=== PATIENT | male | born 1980 | race Caucasian/White ===

== ENCOUNTER 2016-12-04 16:11 | Emergency (ER) | payer OTHER ==
[~2016-12-04 16:11] MED LIST: IBUPOTC PO; NORCOTAB PO
--- NOTE | 2016-12-04 18:06 | REP ---
Head CT without contrast: History: Intermittent headaches. Comparison study: No comparison study. CT findings: Bone window settings demonstrate an intact bony calvarium. There is no evidence of skull fracture or incidental bony calvarial lesion. There are mild mucosal thickening changes in the right sphenoid and ethmoid air cells consistent with some degree of paranasal sinus disease. The visualized paranasal sinuses appear otherwise clear. No intraorbital abnormality is seen. On soft tissue window setting images; the lateral, third, and fourth ventricles are normal in size and position. Keys-white differentiation pattern is normal above and below the tentorium. There are is no evidence of intracranial hemorrhage. No mass, edema, infarction, or midline shift is seen. No extra-axial fluid collection is appreciated. Impression: There is mild mucosal thickening in the ethmoid and right sphenoid air cells consistent with paranasal sinus disease, otherwise negative noncontrast head CT. Signed by Juanjose Weinstein MD 12/04/2016 05:59 P
[2016-12-04] MEDS ORDERED: DOXYCYCLINE HYCLATE 100 MG TAB As Ordered ONE (18:57)
--- NOTE | 2016-12-04 19:03 | EDDOCDS ---
Nurse's Notes [facility] Name: Nabeel Whitfield Age: 36 yrs Sex: Male : 1980 Arrival Date: 12/04/2016 Time: 16:11 Bed 8 Private MD: PRJohn HENDRICKSON Diagnosis: Palpitations;Acute sphenoidal sinusitis;Acute ethmoidal sinusitis Presentation: 12/04 16:18 Presenting complaint: Patient states: increased frequency of headaches over past 2-3 jjr weeks,2 to 3 irregular heart beats a day for past 2-3 weeks also. Adult Sepsis Screening: The patient does not have new or worsening altered mentation. Patient's respiratory rate is less than 22. Systolic blood pressure is greater than 100. Patient has a qSOFA score of 0- Negative Sepsis Screen. Suicide/Homicide risk assessment- the patient denies having any suicidal and/or homicidal ideations and does not present with any other emotional, behavioral or mental health complaints. 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 Transition of care: patient was not received from another setting of care. 16:18 Acuity: CANDY Level 3 jjr 16:18 Method Of Arrival: Ambulance jjr Triage Assessment: 16:21 General: Appears in no apparent distress, Behavior is appropriate for age. Pain: jjr Location: top of head Pain currently is 4 out of 10 on a pain scale. Pt Declines HIV testing. Neurological: No deficits noted. Reports headache. Cardiovascular: Rhythm is regular Chest pain is denied. Respiratory: No deficits noted. Derm: No deficits noted. Historical: - Allergies: no known allergies; - Home Meds: 1. aspirin 325 mg Oral tab 2 tabs prn (Last dose: 12/04/2016) - PMHx: none; - PSHx: Cholecystectomy; - The history from nurses notes was reviewed: and I agree with what is documented. - Social history: Smoking status: Patient states former smoker of tobacco. No barriers to communication noted, The patient speaks fluent Chinese. - : The pt / caregiver states he / she is not on anticoagulants. Home medication list is obtained from the patient. - Hospitalizations: : No recent hospitalization is reported. - Exposure Risk Screening:: None identified. - Immunization history:: All immunizations up-to-date. - Family history: Pertinent for Mother has/had Father has/had hypertension. - Social history:: the patient is a non-smoker, the patient does not drink alcohol, no caffeine or supplements. Screenin:21 Screening information is obtained from the patient. Fall risk: No risks identified. jjr Assistance ADL's: requires no assistance with activities of daily living. Abuse/DV Screen: The patient / caregiver reports he/she is: not in a situation that causes fear, pain or injury. Nutritional screening: No deficits noted. Advance Directives: There is no active DNR order. home support is adequate. Assessment: 16:21 General: Appears in no apparent distress, Behavior is appropriate for age. jjr 17:45 General: Appears in no apparent distress, Behavior is appropriate for age. jjr Neurological: No deficits noted. Cardiovascular: Rhythm is sinus rhythm. Respiratory: No deficits noted. Derm: No deficits noted. 18:37 General: Appears in no apparent distress, holter monitor in place, ambulatory to BR jjr gait steady. Vital Signs: 16:19 BP 144 / 81; Pulse 85; Resp 18; Temp 97.1(T); Pulse Ox 100% on R/A; Weight 88.45 kg j (R); Height 5 ft. 8 in. (172.72 cm) (R); Pain 4/10; 16:21 BP 130 / 60 (auto/); jjr 16:21 Pulse 86 MON; Pulse Ox 100% ; jjr 16:27 BP 129 / 60 (auto/); jjr 16:27 Pulse 76 MON; Pulse Ox 100% ; jjr 16:57 BP 108 / 58 (auto/); jjr 16:57 Pulse 76 MON; Pulse Ox 97% ; jjr 17:27 BP 101 / 61 (auto/); jjr 17:27 Pulse 76 MON; Resp 18; Pulse Ox 98% on R/A; jjr 17:57 BP 122 / 75 (auto/); jjr 17:57 Pulse 80 MON; Pulse Ox 99% ; jjr 18:27 BP 117 / 72 (auto/); jjr 18:27 Pulse 88 MON; Resp 18; Pulse Ox 99% on R/A; jjr 16:19 Body Mass Index 29.65 (88.45 kg, 172.72 cm) jjr Vitals: 16:19 Log In Time N/A - ambulance arrival. jjr ED Course: 16:13 Patient visited by Kendra Vasquez, Stock Order Lister. lbd 16:13 [facility], Nora is Private Physician. lbd 16:13 Patient moved to Waiting lbd 16:14 Tonya Crowell, RN is Primary Nurse. lbd 16:14 Patient moved to 8 lbd 16:19 Triage Initiated jjr 16:21 The patient / caregiver is instructed regarding the plan of care and ED course. Cardiac jjr monitor on. Pulse ox on. NIBP on. 16:22 Patient visited by Tonya Crowell RN. jjr 17:13 Uriel Delgadillo MD is Attending Physician. pc 17:19 Patient visited by Uriel Delgadillo MD. pc 17:45 Patient visited by Tonya Crowell RN. jjr 18:21 [facility] Payment Agreement was scanned into [employer] and attached to record. zo 18:38 Patient visited by Tonya Crowell RN. jjr 18:38 CT Head Without Contrast Returned. EDMS 18:50 John [facility]inoza, [facility] is Referral Physician. pc 18:51 Nicole Miranda is Referral Physician. pc 18:56 Mer Rm RN is Primary Nurse. ko2 19:01 Discontinued lock intact, bleeding controlled, pressure dressing applied, No jjr redness/swelling at site. 20 gauge left AC. No procedures done that require assistance. Administered Medications: 19:01 Drug: Doxycycline 100 mg [doxycycline hyclate 100 mg tablet (1 tabs)] Route: PO; jjr Order Results: Radiology Order: CT Head Without Contrast Test: CT Head Without Contrast REASON FOR EXAMINATION: intermittent headaches; Head CT without contrast:; ; History: Intermittent headaches.; ; Comparison study: No comparison study.; ; CT findings: Bone window settings demonstrate an intact bony calvarium. There; is no evidence of skull fracture or incidental bony calvarial lesion. There are; mild mucosal thickening changes in the right sphenoid and ethmoid air cells; consistent with some degree of paranasal sinus disease. The visualized paranasal; sinuses appear otherwise clear. No intraorbital abnormality is seen. On soft; tissue window setting images; the lateral, third, and fourth ventricles are; normal in size and position. Keys-white differentiation pattern is normal above; and below the tentorium. There are is no evidence of intracranial hemorrhage.; No mass, edema, infarction, or midline shift is seen. No extra-axial fluid; collection is appreciated.; ; Impression:; ; There is mild mucosal thickening in the ethmoid and right sphenoid air cells; consistent with paranasal sinus disease, otherwise negative noncontrast head CT.; ; ; ; Signed by; Juanjose Weinstein MD 12/04/2016 05:59 P; Outcome: 18:51 Discharge ordered by Provider. pc 19:01 Discharge Assessment: patient administered narcotics - no. The following High Risk jjr Discharge criteria are identified: None. Discharged to home ambulatory. Condition: stable. Discharge instructions given to patient, Instructed on discharge instructions, follow up and referral plans. medication usage, Demonstrated understanding of instructions, medications, Prescriptions given X 2. CT Study completed. Property sent home with patient. 19:02 Patient left the ED. jjr Signatures: Dispatcher [employer] EDMS Uriel Delgadillo MD MD pc Kendra Vasquez, Stock Order Lister Unit lbd Saundra Campos Jessica, RN RN Mer McdanielRN RN ko2 MTDD
--- NOTE | 2016-12-04 19:03 | EDDOCDS ---
Physician Documentation [facility] Name: Nabeel Whitfield Age: 36 yrs Sex: Male : 1980 Arrival Date: 12/04/2016 Time: 16:11 Bed 8 Private MD: John ZEPEDA Disposition: 12/04 18:49 Critical Care: Critical care not applicable. pc Disposition: 12/04/16 18:51 Discharged to Home/Self Care. Impression: Palpitations, Acute sphenoidal sinusitis, Acute ethmoidal sinusitis. - Condition is Stable. - Discharge Instructions: Palpitations, Sinusitis, Adult. - Prescriptions for Doxycycline Monohydrate 100 mg Oral Tablet - take 1 tablet by ORAL route every 12 hours for 10 days; 20 tablet. - Medication Reconciliation, Local Pharmacy Hours form. - Follow up: KATELYN Grossman; When: 2 - 3 days; Reason: Recheck today's complaints, Continuance of care. Follow up: Nicole Miranda; When: Call to arrange an appointment; Reason: To establish care. - Problem is an ongoing problem. - Symptoms are unchanged. HPI: 17:21 This 36 yrs old Male presents to ER via Ambulance with complaints of pc Palpitations. 17:21 The history is obtained from the patient. He has had palpitations, described as one pc extra beat, 2-3 times per day, over the past 3-4 weeks. He also has had frontal headaches that last 10 minutes, resolved with ASA, "a few times a day" for the same time frame. He denies any visual changes, focal neuro deficits, nausea or vomiting, chest pain, SOB or any other symptoms. He went ot his PCP at [place], who sent him by ambulance. Historical: - Allergies: no known allergies; - Home Meds: 1. aspirin 325 mg Oral tab 2 tabs prn (Last dose: 12/04/2016) - PMHx: none; - PSHx: Cholecystectomy; - The history from nurses notes was reviewed: and I agree with what is documented. - Social history: Smoking status: Patient states former smoker of tobacco. No barriers to communication noted, The patient speaks fluent Lebanese. - : The pt / caregiver states he / she is not on anticoagulants. Home medication list is obtained from the patient. - Hospitalizations: : No recent hospitalization is reported. - Exposure Risk Screening:: None identified. - Immunization history:: All immunizations up-to-date. - Family history: Pertinent for Mother has/had Father has/had hypertension. - Social history:: the patient is a non-smoker, the patient does not drink alcohol, no caffeine or supplements. ROS: 17:21 All systems are negative except as listed. pc Exam: 17:21 General Appearance: no acute distress, alert. pc 17:21 EENT: normal eye inspection, ears, nose and throat normal, pharynx normal, mucous membranes moist 17:21 Neck: The exam reveals no acute abnormalities. ROM is normal and painless. No nuchal rigidity is noted.. 17:21 Respiratory: no respiratory distress, normal breath sounds, chest non-tender. 17:21 CVS: regular pulse rate, regular rhythm, normal S1 and S2, no murmurs, strong peripheral pulses, normal capillary refill. 17:21 Abdomen: soft, non-tender, no organomegaly, normal bowel sounds. 17:21 Back: normal inspection. 17:21 Skin: skin color is normal, warm, dry. 17:21 Extremities: The extremities have a grossly normal appearance, are non-tender, without acute ROM abnormalities. 17:21 Neuro: oriented x 3, cranial nerves normal as tested, no motor deficits, no sensory deficits, normal gait. 17:21 Psych: normal mood. Vital Signs: 16:19 BP 144 / 81; Pulse 85; Resp 18; Temp 97.1(T); Pulse Ox 100% on R/A; Weight 88.45 kg / jjr 195 lbs (R); Height 5 ft. 8 in. (172.72 cm) (R); Pain 4/10; 16:21 BP 130 / 60 (auto/); jjr 16:21 Pulse 86 MON; Pulse Ox 100% ; jjr 16:27 BP 129 / 60 (auto/); jjr 16:27 Pulse 76 MON; Pulse Ox 100% ; jjr 16:57 BP 108 / 58 (auto/); jjr 16:57 Pulse 76 MON; Pulse Ox 97% ; jjr 17:27 BP 101 / 61 (auto/); jjr 17:27 Pulse 76 MON; Resp 18; Pulse Ox 98% on R/A; jjr 17:57 BP 122 / 75 (auto/); jjr 17:57 Pulse 80 MON; Pulse Ox 99% ; jjr 18:27 BP 117 / 72 (auto/); jjr 18:27 Pulse 88 MON; Resp 18; Pulse Ox 99% on R/A; jjr 16:19 Body Mass Index 29.65 (88.45 kg, 172.72 cm) jjr MDM: 17:20 CT Head Without Contrast Ordered. EDMS 17:21 Differential Diagnosis: occasional palpitations; intermittent brief otherwise pc asymptomatic frontal headaches. Plan: EKG, CT, advice. 17:22 ECG WITH READING ER PHYS+CARDIAG ordered. EDMS 17:31 HOLTER MONITOR+CARDIAG ordered. EDMS 18:17 Financial registration complete. zo 18:21 [facility] Payment Agreement was scanned into [employer] and attached to record. zo 18:49 Data reviewed: old medical records, vital signs, nurses notes, EKG(s). Test pc interpretation: EKG. The patient has been re-examined and re-evaluated. The clinical presentation did not require any ED treatment or interventions. Disposition: The historical points, examination findings, and any diagnostic results supporting the provided diagnosis, were discussed with the patient or legal guardian. The need for outpatient follow up with the provider listed on their discharge instructions was discussed. They were encouraged to return to [facility], or the nearest ED, if symptoms worsen/persist, or for any other questions/concerns. 18:50 Doxycycline 100 mg PO once ordered. pc EC:49 Rate is 74 beats/min. Rhythm is regular, Normal Sinus Rhythm. QRS [place] is Normal. IA pc interval is normal. QRS interval is normal. QT interval is normal. No Q waves. T waves are Normal. No ST changes noted. Clinical impression: Normal Sinus Rhythm. Administered Medications: 19:01 Drug: Doxycycline 100 mg [doxycycline hyclate 100 mg tablet (1 tabs)] Route: PO; jjr Signatures: Dispatcher [employer] Uriel Montague MD MD pc Olin, Zoeann zo Raymond, Jessica, RN RN jjr The chart was reviewed and I authenticate all verbal orders and agree with the evaluation and treatment provided.Attachments: 18:21 [facility] Payment Agreement zo MTDD
--- NOTE | 2016-12-05 08:37 | ECGEPIP ---
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
--- NOTE | 2016-12-08 09:43 | EDDOCDS ---
Physician Documentation [facility] Name: Nabeel Whitfield Age: 36 yrs Sex: Male : 1980 Arrival Date: 12/04/2016 Time: 16:11 Bed 8 Private MD: John ZEPEDA Disposition: 12/04 18:49 Critical Care: Critical care not applicable. pc Disposition: 12/04/16 18:51 Discharged to Home/Self Care. Impression: Palpitations, Acute sphenoidal sinusitis, Acute ethmoidal sinusitis. - Condition is Stable. - Discharge Instructions: Palpitations, Sinusitis, Adult. - Prescriptions for Doxycycline Monohydrate 100 mg Oral Tablet - take 1 tablet by ORAL route every 12 hours for 10 days; 20 tablet. - Medication Reconciliation, Local Pharmacy Hours form. - Follow up: KATELYN Grossman; When: 2 - 3 days; Reason: Recheck today's complaints, Continuance of care. Follow up: Nicole Miranda; When: Call to arrange an appointment; Reason: To establish care. - Problem is an ongoing problem. - Symptoms are unchanged. HPI: 17:21 This 36 yrs old Male presents to ER via Ambulance with complaints of pc Palpitations. 17:21 The history is obtained from the patient. He has had palpitations, described as one pc extra beat, 2-3 times per day, over the past 3-4 weeks. He also has had frontal headaches that last 10 minutes, resolved with ASA, "a few times a day" for the same time frame. He denies any visual changes, focal neuro deficits, nausea or vomiting, chest pain, SOB or any other symptoms. He went ot his PCP at [place], who sent him by ambulance. Historical: - Allergies: no known allergies; - Home Meds: 1. aspirin 325 mg Oral tab 2 tabs prn (Last dose: 12/04/2016) - PMHx: none; - PSHx: Cholecystectomy; - The history from nurses notes was reviewed: and I agree with what is documented. - Social history: Smoking status: Patient states former smoker of tobacco. No barriers to communication noted, The patient speaks fluent Czech. - : The pt / caregiver states he / she is not on anticoagulants. Home medication list is obtained from the patient. - Hospitalizations: : No recent hospitalization is reported. - Exposure Risk Screening:: None identified. - Immunization history:: All immunizations up-to-date. - Family history: Pertinent for Mother has/had Father has/had hypertension. - Social history:: the patient is a non-smoker, the patient does not drink alcohol, no caffeine or supplements. ROS: 17:21 All systems are negative except as listed. pc Exam: 17:21 General Appearance: no acute distress, alert. pc 17:21 EENT: normal eye inspection, ears, nose and throat normal, pharynx normal, mucous membranes moist 17:21 Neck: The exam reveals no acute abnormalities. ROM is normal and painless. No nuchal rigidity is noted.. 17:21 Respiratory: no respiratory distress, normal breath sounds, chest non-tender. 17:21 CVS: regular pulse rate, regular rhythm, normal S1 and S2, no murmurs, strong peripheral pulses, normal capillary refill. 17:21 Abdomen: soft, non-tender, no organomegaly, normal bowel sounds. 17:21 Back: normal inspection. 17:21 Skin: skin color is normal, warm, dry. 17:21 Extremities: The extremities have a grossly normal appearance, are non-tender, without acute ROM abnormalities. 17:21 Neuro: oriented x 3, cranial nerves normal as tested, no motor deficits, no sensory deficits, normal gait. 17:21 Psych: normal mood. Vital Signs: 16:19 BP 144 / 81; Pulse 85; Resp 18; Temp 97.1(T); Pulse Ox 100% on R/A; Weight 88.45 kg / jjr 195 lbs (R); Height 5 ft. 8 in. (172.72 cm) (R); Pain 4/10; 16:21 BP 130 / 60 (auto/); jjr 16:21 Pulse 86 MON; Pulse Ox 100% ; jjr 16:27 BP 129 / 60 (auto/); jjr 16:27 Pulse 76 MON; Pulse Ox 100% ; jjr 16:57 BP 108 / 58 (auto/); jjr 16:57 Pulse 76 MON; Pulse Ox 97% ; jjr 17:27 BP 101 / 61 (auto/); jjr 17:27 Pulse 76 MON; Resp 18; Pulse Ox 98% on R/A; jjr 17:57 BP 122 / 75 (auto/); jjr 17:57 Pulse 80 MON; Pulse Ox 99% ; jjr 18:27 BP 117 / 72 (auto/); jjr 18:27 Pulse 88 MON; Resp 18; Pulse Ox 99% on R/A; jjr 16:19 Body Mass Index 29.65 (88.45 kg, 172.72 cm) jjr MDM: 17:20 CT Head Without Contrast Ordered. EDMS 17:21 Differential Diagnosis: occasional palpitations; intermittent brief otherwise pc asymptomatic frontal headaches. Plan: EKG, CT, advice. 17:22 ECG WITH READING ER PHYS+CARDIAG ordered. EDMS 17:31 HOLTER MONITOR+CARDIAG ordered. EDMS 18:17 Financial registration complete. zo 18:21 [facility] Payment Agreement was scanned into [employer] and attached to record. zo 18:49 Data reviewed: old medical records, vital signs, nurses notes, EKG(s). Test pc interpretation: EKG. The patient has been re-examined and re-evaluated. The clinical presentation did not require any ED treatment or interventions. Disposition: The historical points, examination findings, and any diagnostic results supporting the provided diagnosis, were discussed with the patient or legal guardian. The need for outpatient follow up with the provider listed on their discharge instructions was discussed. They were encouraged to return to [facility], or the nearest ED, if symptoms worsen/persist, or for any other questions/concerns. 18:50 Doxycycline 100 mg PO once ordered. pc 12/05 09:57 ECG/EKG was scanned into [employer] and attached to record. gb 12:51 PCR was scanned into [employer] and attached to record. EC/06 18:49 Rate is 74 beats/min. Rhythm is regular, Normal Sinus Rhythm. QRS [place] is Normal. MD pc interval is normal. QRS interval is normal. QT interval is normal. No Q waves. T waves are Normal. No ST changes noted. Clinical impression: Normal Sinus Rhythm. Administered Medications: 19:01 Drug: Doxycycline 100 mg [doxycycline hyclate 100 mg tablet (1 tabs)] Route: PO; jjr Signatures: Dispatcher [employer] EDMS Uriel Delgadillo MD MD pc Deisy Hart, Reg Reg gb Saundra Campos zo Tonya Crowell, RN RN jjr The chart was reviewed and I authenticate all verbal orders and agree with the evaluation and treatment provided.Attachments: 18:21 [facility] Payment Agreement zo 12/05 09:57 ECG/EKG gb Chart Complete MTDD
--- NOTE | 2016-12-08 09:43 | EDDOCDS ---
Physician Documentation [facility] Name: Nabeel Whitfield Age: 36 yrs Sex: Male : 1980 Arrival Date: 12/04/2016 Time: 16:11 Bed 8 Private MD: John ZEPEDA Disposition: 12/04 18:49 Critical Care: Critical care not applicable. pc Disposition: 12/04/16 18:51 Discharged to Home/Self Care. Impression: Palpitations, Acute sphenoidal sinusitis, Acute ethmoidal sinusitis. - Condition is Stable. - Discharge Instructions: Palpitations, Sinusitis, Adult. - Prescriptions for Doxycycline Monohydrate 100 mg Oral Tablet - take 1 tablet by ORAL route every 12 hours for 10 days; 20 tablet. - Medication Reconciliation, Local Pharmacy Hours form. - Follow up: KATELYN Grossman; When: 2 - 3 days; Reason: Recheck today's complaints, Continuance of care. Follow up: Nicole Miranda; When: Call to arrange an appointment; Reason: To establish care. - Problem is an ongoing problem. - Symptoms are unchanged. HPI: 17:21 This 36 yrs old Male presents to ER via Ambulance with complaints of pc Palpitations. 17:21 The history is obtained from the patient. He has had palpitations, described as one pc extra beat, 2-3 times per day, over the past 3-4 weeks. He also has had frontal headaches that last 10 minutes, resolved with ASA, "a few times a day" for the same time frame. He denies any visual changes, focal neuro deficits, nausea or vomiting, chest pain, SOB or any other symptoms. He went ot his PCP at [facility] [place], who sent him by ambulance. Historical: - Allergies: no known allergies; - Home Meds: 1. aspirin 325 mg Oral tab 2 tabs prn (Last dose: 12/04/2016) - PMHx: none; - PSHx: Cholecystectomy; - The history from nurses notes was reviewed: and I agree with what is documented. - Social history: Smoking status: Patient states former smoker of tobacco. No barriers to communication noted, The patient speaks fluent Romanian. - : The pt / caregiver states he / she is not on anticoagulants. Home medication list is obtained from the patient. - Hospitalizations: : No recent hospitalization is reported. - Exposure Risk Screening:: None identified. - Immunization history:: All immunizations up-to-date. - Family history: Pertinent for Mother has/had Father has/had hypertension. - Social history:: the patient is a non-smoker, the patient does not drink alcohol, no caffeine or supplements. ROS: 17:21 All systems are negative except as listed. pc Exam: 17:21 General Appearance: no acute distress, alert. pc 17:21 EENT: normal eye inspection, ears, nose and throat normal, pharynx normal, mucous membranes moist 17:21 Neck: The exam reveals no acute abnormalities. ROM is normal and painless. No nuchal rigidity is noted.. 17:21 Respiratory: no respiratory distress, normal breath sounds, chest non-tender. 17:21 CVS: regular pulse rate, regular rhythm, normal S1 and S2, no murmurs, strong peripheral pulses, normal capillary refill. 17:21 Abdomen: soft, non-tender, no organomegaly, normal bowel sounds. 17:21 Back: normal inspection. 17:21 Skin: skin color is normal, warm, dry. 17:21 Extremities: The extremities have a grossly normal appearance, are non-tender, without acute ROM abnormalities. 17:21 Neuro: oriented x 3, cranial nerves normal as tested, no motor deficits, no sensory deficits, normal gait. 17:21 Psych: normal mood. Vital Signs: 16:19 BP 144 / 81; Pulse 85; Resp 18; Temp 97.1(T); Pulse Ox 100% on R/A; Weight 88.45 kg / jjr 195 lbs (R); Height 5 ft. 8 in. (172.72 cm) (R); Pain 4/10; 16:21 BP 130 / 60 (auto/); jjr 16:21 Pulse 86 MON; Pulse Ox 100% ; jjr 16:27 BP 129 / 60 (auto/); jjr 16:27 Pulse 76 MON; Pulse Ox 100% ; jjr 16:57 BP 108 / 58 (auto/); jjr 16:57 Pulse 76 MON; Pulse Ox 97% ; jjr 17:27 BP 101 / 61 (auto/); jjr 17:27 Pulse 76 MON; Resp 18; Pulse Ox 98% on R/A; jjr 17:57 BP 122 / 75 (auto/); jjr 17:57 Pulse 80 MON; Pulse Ox 99% ; jjr 18:27 BP 117 / 72 (auto/); jjr 18:27 Pulse 88 MON; Resp 18; Pulse Ox 99% on R/A; jjr 16:19 Body Mass Index 29.65 (88.45 kg, 172.72 cm) jjr MDM: 17:20 CT Head Without Contrast Ordered. EDMS 17:21 Differential Diagnosis: occasional palpitations; intermittent brief otherwise pc asymptomatic frontal headaches. Plan: EKG, CT, advice. 17:22 ECG WITH READING ER PHYS+CARDIAG ordered. EDMS 17:31 HOLTER MONITOR+CARDIAG ordered. EDMS 18:17 Financial registration complete. zo 18:21 [facility] Payment Agreement was scanned into Scrybe and attached to record. zo 18:49 Data reviewed: old medical records, vital signs, nurses notes, EKG(s). Test pc interpretation: EKG. The patient has been re-examined and re-evaluated. The clinical presentation did not require any ED treatment or interventions. Disposition: The historical points, examination findings, and any diagnostic results supporting the provided diagnosis, were discussed with the patient or legal guardian. The need for outpatient follow up with the provider listed on their discharge instructions was discussed. They were encouraged to return to [facility], or the nearest ED, if symptoms worsen/persist, or for any other questions/concerns. 18:50 Doxycycline 100 mg PO once ordered. pc 12/05 09:57 ECG/EKG was scanned into Sc[employer] and attached to record. gb 12:51 PCR was scanned into Scry[employer] and attached to record. EC/06 18:49 Rate is 74 beats/min. Rhythm is regular, Normal Sinus Rhythm. QRS [place] is Normal. OR pc interval is normal. QRS interval is normal. QT interval is normal. No Q waves. T waves are Normal. No ST changes noted. Clinical impression: Normal Sinus Rhythm. Administered Medications: 19:01 Drug: Doxycycline 100 mg [doxycycline hyclate 100 mg tablet (1 tabs)] Route: PO; jjr Signatures: Dispatcher [employer] EDMS Uriel Delgadillo MD MD pc Deisy Hart, Reg Reg gb Saundra Campos zo Tonya Crowell, RN RN jjr The chart was reviewed and I authenticate all verbal orders and agree with the evaluation and treatment provided.Attachments: 18:21 [facility] Payment Agreement zo 12/05 09:57 ECG/EKG gb Chart Complete MTDD
--- NOTE | 2016-12-08 09:43 | EDDOCDS ---
Nurse's Notes [facility] Name: Nabeel Jaeger Age: 36 yrs Sex: Male : 1980 Arrival Date: 12/04/2016 Time: 16:11 Bed 8 Private MD: AKJohn HENDRICKSON Diagnosis: Palpitations;Acute sphenoidal sinusitis;Acute ethmoidal sinusitis Presentation: 12/04 16:18 Presenting complaint: Patient states: increased frequency of headaches over past 2-3 jjr weeks,2 to 3 irregular heart beats a day for past 2-3 weeks also. Adult Sepsis Screening: The patient does not have new or worsening altered mentation. Patient's respiratory rate is less than 22. Systolic blood pressure is greater than 100. Patient has a qSOFA score of 0- Negative Sepsis Screen. Suicide/Homicide risk assessment- the patient denies having any suicidal and/or homicidal ideations and does not present with any other emotional, behavioral or mental health complaints. 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 Transition of care: patient was not received from another setting of care. 16:18 Acuity: CANDY Level 3 jjr 16:18 Method Of Arrival: Ambulance jjr Triage Assessment: 16:21 General: Appears in no apparent distress, Behavior is appropriate for age. Pain: jjr Location: top of head Pain currently is 4 out of 10 on a pain scale. Pt Declines HIV testing. Neurological: No deficits noted. Reports headache. Cardiovascular: Rhythm is regular Chest pain is denied. Respiratory: No deficits noted. Derm: No deficits noted. Historical: - Allergies: no known allergies; - Home Meds: 1. aspirin 325 mg Oral tab 2 tabs prn (Last dose: 12/04/2016) - PMHx: none; - PSHx: Cholecystectomy; - The history from nurses notes was reviewed: and I agree with what is documented. - Social history: Smoking status: Patient states former smoker of tobacco. No barriers to communication noted, The patient speaks fluent Tajik. - : The pt / caregiver states he / she is not on anticoagulants. Home medication list is obtained from the patient. - Hospitalizations: : No recent hospitalization is reported. - Exposure Risk Screening:: None identified. - Immunization history:: All immunizations up-to-date. - Family history: Pertinent for Mother has/had Father has/had hypertension. - Social history:: the patient is a non-smoker, the patient does not drink alcohol, no caffeine or supplements. Screenin:21 Screening information is obtained from the patient. Fall risk: No risks identified. jjr Assistance ADL's: requires no assistance with activities of daily living. Abuse/DV Screen: The patient / caregiver reports he/she is: not in a situation that causes fear, pain or injury. Nutritional screening: No deficits noted. Advance Directives: There is no active DNR order. home support is adequate. Assessment: 16:21 General: Appears in no apparent distress, Behavior is appropriate for age. jjr 17:45 General: Appears in no apparent distress, Behavior is appropriate for age. jjr Neurological: No deficits noted. Cardiovascular: Rhythm is sinus rhythm. Respiratory: No deficits noted. Derm: No deficits noted. 18:37 General: Appears in no apparent distress, holter monitor in place, ambulatory to BR jjr gait steady. Vital Signs: 16:19 BP 144 / 81; Pulse 85; Resp 18; Temp 97.1(T); Pulse Ox 100% on R/A; Weight 88.45 kg j (R); Height 5 ft. 8 in. (172.72 cm) (R); Pain 4/10; 16:21 BP 130 / 60 (auto/); jjr 16:21 Pulse 86 MON; Pulse Ox 100% ; jjr 16:27 BP 129 / 60 (auto/); jjr 16:27 Pulse 76 MON; Pulse Ox 100% ; jjr 16:57 BP 108 / 58 (auto/); jjr 16:57 Pulse 76 MON; Pulse Ox 97% ; jjr 17:27 BP 101 / 61 (auto/); jjr 17:27 Pulse 76 MON; Resp 18; Pulse Ox 98% on R/A; jjr 17:57 BP 122 / 75 (auto/); jjr 17:57 Pulse 80 MON; Pulse Ox 99% ; jjr 18:27 BP 117 / 72 (auto/); jjr 18:27 Pulse 88 MON; Resp 18; Pulse Ox 99% on R/A; jjr 16:19 Body Mass Index 29.65 (88.45 kg, 172.72 cm) jjr Vitals: 16:19 Log In Time N/A - ambulance arrival. jjr ED Course: 16:13 Patient visited by Kendra Vasquez, Window Decorator. lbd 16:13 [facility], [place] is Private Physician. lbd 16:13 Patient moved to Waiting lbd 16:14 Tonya Crowell, RN is Primary Nurse. lbd 16:14 Patient moved to 8 lbd 16:19 Triage Initiated jjr 16:21 The patient / caregiver is instructed regarding the plan of care and ED course. Cardiac jjr monitor on. Pulse ox on. NIBP on. 16:22 Patient visited by Tonya Crowell RN. jjr 17:13 Uriel Delgadillo MD is Attending Physician. pc 17:19 Patient visited by Uriel Delgadillo MD. pc 17:45 Patient visited by Tonya Crowell RN. jjr 18:21 [facility] Payment Agreement was scanned into righTune and attached to record. zo 18:38 Patient visited by Tonya Crowell RN. jjr 18:38 CT Head Without Contrast Returned. EDMS 18:50 [place], [facility] is Referral Physician. pc 18:51 Nicole Miranda is Referral Physician. pc 18:56 Mer Rm RN is Primary Nurse. ko2 19:01 Discontinued lock intact, bleeding controlled, pressure dressing applied, No jjr redness/swelling at site. 20 gauge left AC. No procedures done that require assistance. 12/05 08:39 EKG-ADULT Returned. EDMS 09:57 ECG/EKG was scanned into righTune and attached to record. gb 12:51 PCR was scanned into righTune and attached to record. gb Administered Medications: 12/04 19:01 Drug: Doxycycline 100 mg [doxycycline hyclate 100 mg tablet (1 tabs)] Route: PO; jjr Order Results: Radiology Order: CT Head Without Contrast Test: CT Head Without Contrast REASON FOR EXAMINATION: intermittent headaches; Head CT without contrast:; ; History: Intermittent headaches.; ; Comparison study: No comparison study.; ; CT findings: Bone window settings demonstrate an intact bony calvarium. There; is no evidence of skull fracture or incidental bony calvarial lesion. There are; mild mucosal thickening changes in the right sphenoid and ethmoid air cells; consistent with some degree of paranasal sinus disease. The visualized paranasal; sinuses appear otherwise clear. No intraorbital abnormality is seen. On soft; tissue window setting images; the lateral, third, and fourth ventricles are; normal in size and position. Keys-white differentiation pattern is normal above; and below the tentorium. There are is no evidence of intracranial hemorrhage.; No mass, edema, infarction, or midline shift is seen. 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 19:01 Discharge Assessment: patient administered narcotics - no. The following High Risk jjr Discharge criteria are identified: None. Discharged to home ambulatory. Condition: stable. Discharge instructions given to patient, Instructed on discharge instructions, follow up and referral plans. medication usage, Demonstrated understanding of instructions, medications, Prescriptions given X 2. CT Study completed. Property sent home with patient. 19:02 Patient left the ED. jjr Signatures: Dispatcher Med[employer] Uriel Montague MD MD pc Daly, Linda, Window Decorator Unit lbd Deisy Hart, Saundra Bailey Jessica, RN RN jjr Mer Rm,RN RN ko2 Chart Complete MTDD
--- NOTE | 2016-12-08 09:47 | HOLTMON ---
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 There was minimal artifact. Maximum heart rate was 129. Minimal heart rate was 54. Underlying rhythm was sinus. There were no pauses, or ventricular ectopy. Two premature atrial singlets were noted. There were no significant diary events. This is a normal study, and suggests a non-cardiac reason for the sensation of palpitations. Electronically Signed On 12-08-2016 9:47:25 EST by Kolby Black
== END 2016-12-04 19:02 | disposition home or self-care (01) ==
LOC: M ED 16:11
DX: R00.2 Palpitations (principal); J01.20 Acute ethmoidal sinusitis, unspecified; J01.30 Acute sphenoidal sinusitis, unspecified; Z87.891 Personal history of nicotine dependence